=== PATIENT | female | born 1940 | race Caucasian/White ===

== ENCOUNTER 2019-09-22 13:09 | Outpatient (CLI) | payer OTHER, MEDICARE | END 2019-09-22 22:43 | disposition home or self-care (01) | LOC: SRD 13:09 | PROVIDERS: ATTEND Internal Medicine Pulmonary Disease | DX: J98.11 Atelectasis (principal); I51.7 Cardiomegaly; M47.814 Spondylosis without myelopathy or radiculopathy, thoracic region; I70.90 Unspecified atherosclerosis | CPT/HCPCS: 71046-TC ==